=== PATIENT | male | born 1990 | race Caucasian/White ===

== ENCOUNTER → 2020-10-30 11:20 | Outpatient (CLI) | payer BC ==
--- NOTE | 2020-11-03 10:43 | EC ---
PATIENT:ZULEMA CALLES DATE OF SERVICE: 10/30/20 SEX: M MEDICAL RECORD: [id number] DATE OF : [birth year] LOCATION:[facility] AGE OF PATIENT: 30 ADMISSION DATE: 10/30/20 REFERRING PHYSICIAN: INTERPRETING PHYSICIAN: RAYMUNDO OSORIO MD ECHOCARDIOGRAM REPORT ECHO CHARGES 4 ECHO COMPLETE Date: 10/30/20 CLINICAL DIAGNOSIS: HEART MURMUR ECHOCARDIOGRAPHIC MEASUREMENTS (adult normal given) AC root (d.<3.7cm) 2.8 cm LV Septum d (<1.2 cm> 1.4 cm Valve Excursion 1.7 cm LV Septum (systole) 1.5 cm Left Atria (s.<4.0cm> 3.5 cm LVPW d(<1.2cm) 1.1 cm RV (d.<2.3cm) 4.4 cm LVPW (sytole) 2.0 cm LV diastole(<5.6CM) 5.0 cm MV E-F(>70mm/sec) cm LV systole 3.4 cm LVOT Diameter 1.8 cm MV exc.(>10mm) 1.8 cm Est.ejection fraction (50-75%) % DOPPLER: LVIT cm/sec A 74.0 cm/sec E 107.0 cm/sec LA cm/sec RVSP 24 mmHg LVOT 107 cm/sec AOP1/2T m/s Asc. Ao 133 cm/sec RVOT 74 cm/sec RA cm/sec PA 122 cm/sec AV Gradient Peak 7.02 mmHg AV Mean 3.50 mmHg AV Area 2.3 cm MV Gradient Peak 3.85 mmHg MV Mean 1.40 mmHg MV Area cm COMMENTS: Customer Support Representative: 2 DERIAN CORREA Tree Trimming Line Technician: 2 Dr. Georges TAPE# PACS Pericardial Effusion N DATE OF SERVICE: Adequate 2D, color-flow imaging, spectral Doppler, and M-Mode FINDINGS: No LVH. LV internal dimension is normal. Wall motion is normal. EF is greater than or equal to 55%. Aortic valve is tricuspid with good valve excursion. No evidence of stenosis by Doppler interrogation. Left atrium is normal. Mitral valve appears normal. Trivial MR. Right-sided chamber is grossly normal. Trivial TR. ECHOCARDIOGRAM REPORT [id number] ZULEMA CALLES TRANSINT:[id number] Voice Confirmation ID: [id number] DOCUMENT ID: [id number] RAYMUNDO OSORIO MD at 1043 CC: [id number] DICTATION DATE: 10/30/20 1528 MANAGER BANQUET: 10/30/20 1542 DEP CLI 10/30/20 [id number] [place] [address]
== END | disposition home or self-care (01) ==
LOC: D.HCCECHO 11:20 → D.HCCARDIO 14:30 → D.HCCECHO 14:30
PROVIDERS: ATTEND Internal Medicine Interventional Cardiology
DX: R00.2 Palpitations (principal)